=== PATIENT | female | born 1980 | race American Indian/Alaskan Native ===

== ENCOUNTER 2019-07-21 14:47 | Emergency (ER) | payer SELFPAY ==
[2019-07-21 15:02] VITALS: BP 116/73
[2019-07-21] MEDS ORDERED: ASPIRIN 325 MG TAB PO ONE (15:03)
--- NOTE | 2019-07-21 16:17 | XRay Report ---
CHEST 1 VIEW INDICATION: Chest Pain. COMPARISON: None FINDINGS: Support devices: None. Heart: Within normal limits. Lungs/Pleura: No acute air space or interstitial disease. Additional findings: None. IMPRESSION: Normal AP chest. Signer Name: Carmelo Basurto Jr, MD Signed: 07/21/2019 4:13 PM Workstation Name: [id number]
[2019-07-21 16:39] LABS: Basophils % (Auto) 0.9 % (0.0-1.8); Eosinophils # (Auto) 0.2 K/mm3 (0.0-0.4); Eosinophils % (Auto) 3.2 % (0.0-4.3); Hematocrit 36.3 % (30.3-42.9); Hemoglobin 11.7 gm/dl (10.1-14.3); Lymphocytes # (Auto) 2.1 K/mm3 (1.2-5.4); Lymphocytes % (Auto) 40.4 % (13.4-35.0); Mean Corpuscular HGB Conc 32 % (30-34); Mean Corpuscular Volume 76 fl (79-97); Monocytes # (Auto) 0.3 K/mm3 (0.0-0.8); Monocytes % (Auto) 6.2 % (0.0-7.3); Platelet Count 441 K/mm3 (140-440); Red Cell Distribution Width 17.3 % (13.2-15.2)
[2019-07-21 16:49] LABS: BUN/Creatinine Ratio 14; Blood Urea Nitrogen 11 mg/dL (7-17); Calcium 9.4 mg/dL (8.4-10.2); Hemolysis Index 5
[2019-07-21] MEDS ORDERED: ACETAMINOPHEN 325 MG TAB PO ONE (16:54)
[2019-07-21] MEDS ORDERED: ACETAMINOPHEN 325 MG TAB ONE (16:57)
== END 2019-07-21 19:12 | disposition left against medical advice (07) ==
LOC: ED 14:47
DX: R07.89 Other chest pain (principal); R51 Headache; Z53.21 Procedure and treatment not carried out due to patient leaving prior to being seen by health care provider
CPT/HCPCS: 36415; 71045; 80048; 84484; 85025; 93005; 93010